=== PATIENT | male | born 1990 | race Caucasian/White ===

== ENCOUNTER 2018-08-24 19:44 | Emergency (ER) | payer OTHER ==
[~2018-08-24] VITALS: Ht 180.3 cm; Wt 99.8 kg
[~2018-08-24 19:44] MED LIST: CIPROFLOXIN HC2.5 M1 OPHTHALMIC; LIORESAL 10 MG10 MG PO; NOHOMEMEDICATIONS; NORCO 5-325 TA1 EACH PO; PERCOCET 5-3251 EACH PO; ZPAK PO; [UNRECOGNIZED DRUG - OTHER] OP
[2018-08-24 20:24] LABS: ABSOLUTE BASOPHILS 0.1 thou/uL (0.0-0.2); ABSOLUTE EOSINOPHILS 0.7 thou/uL (0.0-0.7); ABSOLUTE LYMPHOCYTES 2.8 thou/uL (0.8-5.3); ABSOLUTE MONOCYTES 0.7 thou/uL (0.0-1.2); ABSOLUTE NEUTROPHILS 5.4 thou/uL (1.6-8.1); BASOPHILS 0.9 %; EOSINOPHILS 7.4 %; HEMATOCRIT 44.7 % (42.0-52.0); HEMOGLOBIN 15.1 gm/dL (14.0-18.0); LYMPHOCYTES 28.9 %; MCHC 33.8 g/dL (28.0-37.0); MCV 91.8 fL (80.0-100.0); MONOCYTES 7.6 %; MPV 10.7 fl. (7.2-11.1); NUCLEATED RBCS 0 /100WBC; PLATELET COUNT* 170 thou/uL (150-400); POLYS 55.2 %; RBC 4.87 mil/uL (4.50-6.00); RDW-CV 13.6 % (10.5-14.5); WBC 9.8 thou/uL (4.0-11.0)
[2018-08-24 20:36] LABS: PROTIME 9.8 Seconds (9.20-11.50)
[2018-08-24 20:39] LABS: ANION GAP 9 mmol/L (7-16); BUN 10 mg/dL (7-18); CHLORIDE 105 mmol/L (98-107); CO2 28 mmol/L (21-32); CREATININE 1.1 mg/dL (0.6-1.3); GLUCOSE 104 mg/dL (70-99); POTASSIUM 3.3 mmol/L (3.5-5.1); SODIUM 142 mmol/L (136-145)
[2018-08-24 20:49] LABS: ALBUMIN 3.9 g/dL (3.4-5.0); ALKALINE PHOSPHATASE 64 U/L (46-116); LIPASE 162 U/L (73-393); NT-PRO BRAIN NAT PEPTIDE 11 pg/mL (<300); SGOT 25 U/L (15-37); SGPT 59 U/L (30-65); TOTAL BILIRUBIN 0.1 mg/dL (<0.1-1.0); TOTAL PROTEIN 7.5 g/dL (6.4-8.2); TROPONIN-I LEVEL <0.06 ng/mL (<0.06)
[2018-08-24 22:45] VITALS: BP 160/81
--- NOTE | 2018-08-25 12:17 | EKG ---
[place] [address] ELECTROCARDIOGRAM REPORT Name: DEBRA DE LOS SANTOS BOOKER Room: [facility]#: [id number] Admission: 08/24/18 Attend Phys: Discharge: 08/24/18 Date of : 89 Report #: [id number] THIS REPORT FOR: //name// [facility] ED Test Date: 2018-08-24 Test Time: 20:07:35 Pat Name: DEBRA DE LOS SANTOS Department: Room: Gender: Cost Specialist: SANDRA : 1990 Requested By: Mary Hendrix Order Number: [id number] MD: Matias Ibarra Measurements Intervals [place] Rate: 80 P: 18 MD: 179 QRS: 45 QRSD: 92 T: 27 QT: 362 QTc: 418 Interpretive Statements Sinus rhythm Baseline wander in lead(s) I,II,aVR Compared to ECG 12/05/2013 16:22:52 No significant changes Electronically Signed On 08-25-2018 12:17:00 [employer] by Matias Ibarra [email or web address] <ELECTRONICALLY SIGNED> By: Matias Ibarra MD, FACC 08/25/18 1217 06 06 Matias Ibarra MD, [facility] /EPI
== END 2018-08-24 22:49 | disposition home or self-care (01) ==
LOC: M.ERS 19:44
PROVIDERS: Emergency Medicine
DX: R07.89 Other chest pain (principal)